=== PATIENT | male | born 1965 | race Caucasian/White ===

== ENCOUNTER 2024-12-25 14:02 | Outpatient (RCR) | payer BC, SELFPAY ==
[2024-12-25 14:19] VITALS: BP 131/75
[2024-12-25] MEDS: RECLAST 100 IV (14:38)
[2024-12-25 15:38] VITALS: BP 123/74
== END 2024-12-28 09:13 | disposition home or self-care (01) ==
LOC: OID 14:02
PROVIDERS: ATTENDING PHYSICIAN Internal Medicine Endocrinology, Diabetes & Metabolism; FAMILY PHYSICIAN Family Medicine
DX: M81.0 Age-related osteoporosis without current pathological fracture (principal)
CPT/HCPCS: 96365; J3489